=== PATIENT | female | born 1965 ===

== ENCOUNTER 2018-09-07 08:14 | Day surgery (SDC) | payer MEDICAID ==
[2018-09-03 13:42] VITALS: BMI 21.9
[2018-09-07] MEDS ORDERED: Bupivacaine 0.25% 20 ML INJ IJ ONE (08:25)
[2018-09-07] MEDS ORDERED: Lidocaine/Epinephrine 1% 1:100000 10 ML IJ ONE (08:25)
[2018-09-07] MEDS ORDERED: ceFAZolin 1 gm in NS 2 GM/200 ML BAG IVPB ONE (08:25)
[2018-09-07 08:58] VITALS: O2SAT 100
[2018-09-07] MEDS ORDERED: Midazolam 2 MG/2 ML VIAL ONE (09:03)
[2018-09-07] MEDS ORDERED: Propofol 10 mg/ml Inj (20 ML) ONE (09:04)
--- NOTE | 2018-09-07 09:54 | PCM.SURG1 ---
Surgeon's Initial Post Op Note - Surgeon's Notes Surgeon: Dr. Yin Adult Care Manager: Amber Frank, PGY2, Dianne Ang, OMS3 Type of Anesthesia: Local Pre-Operative Diagnosis: left upper thigh cyst Operative Findings: small fluid filled well circumscribed cysts Post-Operative Diagnosis: same Operation Performed: excision of left upper thigh cyst Specimen/Specimens Removed: cyst left upper thigh Estimated Blood Loss: EBL {In ML}: 1 Post-Op Condition: Good Date of Surgery/Procedure: 09/07/18 Time of Surgery/Procedure: 08:15
[2018-09-07 12:10] VITALS: BP 121/73; PULSE 58; RESP 18; TEMP 97.4
--- NOTE | 2018-09-10 04:29 | OP ---
PROCEDURE DATE: 09/07/2018 PREOPERATIVE DIAGNOSIS: Left upper thigh lesion. POSTOPERATIVE DIAGNOSIS: Left upper thigh lesion. PROCEDURE DONE: Excision of the left upper thigh lesion, 1 x 1 cm in size. ANESTHESIA: Local anesthesia. ESTIMATED BLOOD LOSS: Around 5 mL. DRAINS: None. PATHOLOGY: The left upper thigh lesion was sent for the pathology. COMPLICATIONS: None. INTRAOPERATIVE FINDINGS: The patient had approximately 1 x 1 cm cystic left upper thigh lesion. DESCRIPTION OF PROCEDURE: On intraoperative steps, this is a 53-year-old female who was diagnosed with the left upper thigh lesion. The patient was consented for excision of the lesion. The patient was brought to the OR, placed in the right lateral position. The left upper thigh was prepped and draped in the usual sterile fashion and local anesthesia was injected. A transverse incision was made. Upper and lower flap were created. The fistula was completely excised and it was sent over for pathology. Wound was irrigated and closed in two layers, the subcutaneous with 3-0 Vicryl and skin with a 4-0 Monocryl. Dry sterile dressing was applied. The patient tolerated the procedure well. Count of the instrument and gauze was correct. There was no apparent complications. Jed Yin MD
== END 2018-09-07 10:17 | disposition home or self-care (01) ==
LOC: C.SDS 08:14
PROVIDERS: ATTEND Surgery Surgical Critical Care
DX: L72.3 Sebaceous cyst (principal)
CPT/HCPCS: 11402; 13120; 88305; J0690; J2250; J2704; J3010